=== PATIENT | female | born 1985 | race Two or more races ===

== ENCOUNTER 2022-01-31 10:40 | Emergency (ER) | payer OTHER ==
[~2022-01-31] VITALS: Ht 162.6 cm; Wt 68.0 kg
== END 2022-01-31 15:59 | disposition home or self-care (01) ==
LOC: ER 10:40
DX: J45.909 Unspecified asthma, uncomplicated (principal)

== ENCOUNTER 2022-07-25 09:06 | Outpatient (CLI) | payer OTHER | END 2022-07-25 09:12 | disposition home or self-care (01) | LOC: MAMO-SONO 09:06 → RX STUDY 09:06 → MAMO-SONO 09:12 | PROVIDERS: ATTEND Specialist | DX: N70.11 Chronic salpingitis (principal) ==